=== PATIENT | male | born 1985 | race American Indian/Alaskan Native ===

== ENCOUNTER 2019-07-20 18:15 | Emergency (ER) | payer SELFPAY ==
--- NOTE | 2019-07-20 18:45 | Event Note ---
ED Screening Note ED Screening Note: r ankle pain sp fall felt pop This initial assessment/diagnostic orders/clinical plan/treatment(s) is/are subject to change based on patients health status, clinical progression and re- assessment by fellow clinical providers in the ED. Further treatment and workup at subsequent clinical providers discretion. Patient/guardian urged not to elope from the ED as their condition may be serious if not clinically assessed and managed. Initial orders include: xr
[2019-07-20 18:46] VITALS: BP 127/80
[2019-07-20] MEDS ORDERED: IBUPROFEN PO ONE (19:21)
--- NOTE | 2019-07-20 19:39 | XRay Report ---
RIGHT ANKLE 2 VIEWS INDICATION: ankle pain and pop. COMPARISON: No relevant prior imaging study available. FINDINGS: No acute, displaced fracture or dislocation is seen. There is no significant ankle mortise widening. No degenerative changes are noted. IMPRESSION: 1. No acute skeletal abnormality. Signer Name: Chai Gaston MD Signed: 07/20/2019 7:35 PM Workstation Name: [employer]
--- NOTE | 2019-07-20 22:03 | Emergency Department Report ---
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 ) - Related Data Previous Rx's Medication Instructions Recorded Last Taken Type Ketorolac [Toradol] 10 mg PO Q6H PRN #14 tablet 07/20/19 Unknown Rx Allergies Allergy/AdvReac Type Severity Reaction Status Date / Time No Known Allergies Allergy Verified 07/20/19 18:17 ED Review of Systems ROS: Stated complaint: (R) ANKLE PAIN Other details as noted in HPI Comment: All other systems reviewed and negative ED Past Medical Hx - Past Medical History Previous Medical History?: No - Surgical History Past Surgical History?: No - Social History Smoking Status: Never Smoker Substance Use Type: None - Medications Home Medications: Home Medications Medication Instructions Recorded Confirmed Last Taken Type Ketorolac [Toradol] 10 mg PO Q6H PRN #14 tablet 07/20/19 Unknown Rx ED Physical Exam - General Limitations: No Limitations - Head Head exam: Present: atraumatic, normocephalic - Eye Eye exam: Present: normal appearance - ENT ENT exam: Present: mucous membranes moist - Neck Neck exam: Present: normal inspection - Respiratory Respiratory exam: Present: normal lung sounds bilaterally. Absent: respiratory distress - Extremities Exam Extremities exam: Present: joint swelling (tenderness of the right lateral malleolar region and the and in the region of the anterior talofibular ligament. Pain with palpation and range of motion. Drawer test is negative. Pulses 2+ pulses. Capillary refills are brisk) - Neurological Exam Neurological exam: Present: CN II-XII intact - Psychiatric Psychiatric exam: Present: normal affect ED Course Vital Signs 07/20/19 07/20/19 18:44 21:00 Temperature 98.2 F Pulse Rate 81 Respiratory 18 16 Rate Blood Pressure 127/80 O2 Sat by Pulse 95 Oximetry Critical care attestation.: If time is entered above; I have spent that time in minutes in the direct care of this critically ill patient, excluding procedure time. ED Disposition Clinical Impression: Right ankle sprain Disposition: [id number]-01 TO HOME OR SELFCARE Is pt being admited?: No Does the pt Need Aspirin: No Condition: Stable Instructions: Ankle Stirrup Splint (ED), Ankle Sprain (ED) Prescriptions: Ketorolac [Toradol] 10 mg PO Q6H PRN #14 tablet PRN Reason: Pain Referrals: [facility] [Provider Group] - 3-5 Days Forms: AMA Form, Accompanied Note, Work/School Release Form(ED)
== END 2019-07-20 22:55 | disposition home or self-care (01) ==
LOC: ED 18:15
DX: S93.401A Sprain of unspecified ligament of right ankle, initial encounter (principal); W10.9XXA Fall (on) (from) unspecified stairs and steps, initial encounter; Y93.89 Activity, other specified; Y92.89 Other specified places as the place of occurrence of the external cause; Y99.8 Other external cause status